=== PATIENT | male | born 1995 | race Caucasian/White ===

== ENCOUNTER 2016-08-09 23:51 | Emergency (ER) | payer BC ==
[~2016-08-09] VITALS: Ht 182.9 cm; Wt 81.8 kg
[2016-08-09 23:55] VITALS: TEMP 98.6
[2016-08-10] MEDS ORDERED: NORCO 325 MG-51 TAB PO (00:41)
[2016-08-10 01:44] VITALS: BP 120/70; PULSE 80
== END 2016-08-10 01:47 | disposition home or self-care (01) ==
LOC: COL.ER 23:51
DX: S82.841A Displaced bimalleolar fracture of right lower leg, initial encounter for closed fracture (principal); X50.1XXA Overexertion from prolonged static or awkward postures, initial encounter